=== PATIENT | female | born 1960 | race Caucasian/White ===

== ENCOUNTER 2023-06-11 18:22 | Emergency (ER) | payer MEDICAID, SELFPAY ==
[2023-06-11 18:41] VITALS: BP 165/86; PULSE 88; RESP 14; TEMP 36.9; O2SAT 99; BMI 22.4
[2023-06-11] MEDS: LIDOCAINE 2% JELLY 20 ML UR (19:30)
--- NOTE | 2023-06-11 19:32 | ED_ITS ---
HPI - Abdominal Pain General Chief Complaint: Abdominal Pain Stated Complaint: ABDOMINAL PAIN, FEMALE ISSUES Time Seen by Provider: 06/11/23 19:14 Source: patient Mode of arrival: walk-in Limitations: no limitations History of Present Illness HPI narrative: The patient is coming to the ER with a suprapubic pain after she inserted a crystal cube that she got online to help tighten her vagina inserted 2 days ago and she has not been able to get out, she mentioned that she put it in after her boyfriend accused her of cheating on him The patient is complaining of pain no fever no chills no other concerns and she also mentions that she did not go to the bathroom today because of the pain Related Data Previous Rx's Medication Instructions Recorded meloxicam 15 mg tablet 15 mg PO DAILY PRN pain #10 tabs 06/11/23 metronidazole 500 mg tablet 500 mg PO Q8H 7 days #21 tabs 06/11/23 oxycodone-acetaminophen 5 mg-325 1 tab PO Q8H PRN pain 2 days #6 06/11/23 mg tablet (Percocet) tabs Allergies Allergy/AdvReac Type Severity Reaction Status Date / Time No Known Drug Allergies Allergy Verified 06/11/23 18:40 Review of Systems ROS Status of ROS 10 or more systems reviewed and unremarkable except as noted in history and below PFSH PFS Social History Smoking status: Never smoker Exam Narrative Exam Narrative: Nurses notes and vital signs reviewed and patient is not hypoxic. General: Well-appearing and in no apparent distress. Skin: Warm, dry, no pallor noted. No rash. Head: Normocephalic, atraumatic. Neck: Supple, non-tender. Eye: Pupils are equal, round and EOMI. No scleral icterus. Ears, Nose, Mouth, and Throat: TM are clear, no nasal mucosal hypertrophy. Oral mucosa is moist, no posterior oropharynx erythema, uvula is mid-line Cardiovascular: Regular Rate and Rhythm without murmur, gallop or rub. Respiratory: No accessory muscle use or respiratory distress. Lungs are clear to auscultation, no wheezing, rales or rhonchi Chest Wall: no tenderness Back: No midline thoracic or lumbar vertebral tenderness. No CVA tenderness Musculoskeletal: normal ROM, no calf or popliteal tenderness, no lower extremity edema/swelling GI: Abdomen is soft, non-distended. Normal bowel sounds. No masses appreciated. Tenderness noted upon palpation of suprapubic area and on vaginal examination after inserting the speculum and the patient have a very tight vaginal, the patient vaginal wall shows dryness and crusting like irritation. Almost 3 x 5 cm rectangular in shape Crystal is seen Neurological: A&O x4. No cranial nerve dysfunction observed. No truncal ataxia. Moves all extremities. Sensation intact. Psychiatric: Cooperative and interactive. Normal mood and affect. Constitutional Vital Signs, click to edit/add: Last Vital Signs Temp 98.4 F 06/11/23 18:41 Pulse 88 06/11/23 18:41 Resp 14 06/11/23 18:41 BP 165/86 H 06/11/23 18:41 Pulse Ox 99 06/11/23 18:41 O2 Del Method Room Air 06/11/23 18:41 Course Vital Signs Vital signs: Vital Signs Temperature 98.4 F 06/11/23 18:41 Pulse Rate 88 06/11/23 18:41 Respiratory Rate 14 06/11/23 18:41 Blood Pressure 165/86 H 06/11/23 18:41 Pulse Oximetry 99 06/11/23 18:41 Oxygen Delivery Method Room Air 06/11/23 18:41 Temperature 98.4 F 06/11/23 18:41 Pulse Rate 88 06/11/23 18:41 Respiratory Rate 14 06/11/23 18:41 Blood Pressure 165/86 H 06/11/23 18:41 Pulse Oximetry 99 06/11/23 18:41 Oxygen Delivery Method Room Air 06/11/23 18:41 MDM - Abdominal Pain MDM Narrative Medical decision making narrative: Initially used Uro-Jet to help control the pain addition to Toradol the patient also provided with Dilaudid Multiple attempts to remove the foreign body was not successful I did consult Dr. Romero and [facility] service and she present to the bedside where she applied multiple attempts and eventually successfully removing the foreign body CBC showed some leukocytosis and that why the patient was provided with Flagyl and Mobic and Percocet for pain control The patient was referred to [facility] as outpatient Blood work-up also showed some hypokalemia the patient was started on p.o. potassium instructed to increase her p.o. intake of potassium The patient is to follow up with primary care physician in next 2-3 days or to return to the emergency department should any of the signs or symptoms worsen or new symptoms develop. The patient agrees with the following Diagnosis and Treatment plan and the patient will be discharged home. Lab Data Labs: Lab Results 06/11/23 Range/Units 21:20 WBC 14.4 H (4.0-11.0) 10^3/uL RBC 4.03 L (4.20-5.40) 10^6/uL Hgb 12.0 (12.0-16.0) g/dL Hct 35.6 L (36.0-48.0) % MCV 88.3 (81.0-99.0) fL MCH 29.8 (26.7-34.0) pg MCHC 33.7 (29.9-35.2) g/dL RDW 13.5 (11.0-15.0) % Plt Count 336 (150-450) 10^3/uL MPV 11.2 (9.5-13.5) fL Neut % (Auto) 78.1 H (43.0-75.0) % Lymph % (Auto) 15.7 L (20.5-60.0) % Glasscock % (Auto) 5.1 (1.7-12.0) % Eos % (Auto) 0.6 L (0.9-7.0) % Baso % (Auto) 0.2 (0.2-2.0) % Neut # (Auto) 11.3 H (1.4-6.5) 10^3/uL Lymph # (Auto) 2.3 (1.2-3.8) 10^3/uL Glasscock # (Auto) 0.7 (0.3-0.8) 10^3/uL Eos # (Auto) 0.1 (0.0-0.7) 10^3/uL Baso # (Auto) 0.0 (0.0-0.1) 10^3/uL Abs Immat Gran (auto) 0.05 H (0.00-0.03) 10^3/uL Imm/Tot Granulo (auto) 0.3 (0.0-0.5) % Sodium 140 (136-145) mmol/L Potassium 2.9 L* (3.5-5.1) mmol/L Chloride 105 (98-107) mmol/L Carbon Dioxide 27.6 (21.0-32.0) mmol/L Anion Gap 10.3 BUN 14.0 (7.0-18.0) mg/dL Creatinine 0.87 (0.55-1.02) mg/dL Est GFR ( Amer) >60 (>=60) Est GFR (Non-Af Amer) >60 (>=60) BUN/Creatinine Ratio 16.1 Glucose 108 H (74-106) mg/dL Calcium 8.9 (8.5-10.1) mg/dL Total Bilirubin 0.3 (0.2-1.0) mg/dL AST 17 (15-37) U/L ALT 20 (14-59) U/L Alkaline Phosphatase 77 (46-116) U/L Total Protein 7.1 (6.4-8.2) g/dL Albumin 3.4 (3.4-5.0) g/dL Globulin 3.7 g/dL Albumin/Globulin Ratio 0.9 Discharge Plan Discharge Chief Complaint: Abdominal Pain Clinical Impression: Vaginal foreign object, Acute hypokalemia Patient Disposition: Home, Self-Care Time of Disposition Decision: 23:24 Condition: Good Prescriptions / Home Meds: New metronidazole 500 mg tablet 500 mg PO Q8H 7 Days Qty: 21 0RF meloxicam 15 mg tablet 15 mg PO DAILY PRN (Reason: pain ) Qty: 10 0RF oxycodone-acetaminophen [Percocet] 5-325 mg tablet 1 tab PO Q8H PRN (Reason: pain) 2 Days Qty: 6 0RF Rx Instructions: Dx ICD 10 T19.2XXA Instructions: Hypokalemia (ED), Abdominal Pain (ED) Additional Instructions: [facility] [phone] CALL TO SCHEDULE FOLLOW UP FOR YEARLY EXAM. RETURN TO ER IF ANY VAGINAL BLEEDING, REDNESS OR IF STOOL IS COMING OUT OF VAGINA Stand Alone Forms: Portal Instructions Referrals: Don Duron DO [Physician] - 1 week Physician,Non-Staff, MD [Primary Care Provider] - 1 week Discharge Date/Time: 06/12/23 00:00
--- NOTE | 2023-06-11 20:19 | PC.NURSE ---
assisted Dr. Powell in attempt to remove crystal from patient. Vagina appears white, like the skin has been burned. patient was given 20 ml urojet. patient was restless and cried out in pain. after multiple attempts at removal physician stopped to call criminal court judge, patient was cleaned up, bed lowered and given warm blanket. patient playing on phone.
--- NOTE | 2023-06-11 21:59 | P.GYNCN_ITS ---
SUPERVISOR TITLE - CN: HPI Data of Consult Consult date: 06/11/23 Requesting Physician: ED attending Dr. Powell Family Provider: no primary care physician Consult Narrative Reason for consult: pelvic pain and other (patient placed large crystal cube in vagina because her partner said she was too loose referencing labia. Once in vagina it caused constant pain but she nor ER physician were able to remover because of urogenital atrophy) cc:: CC: crystal stuck in vagina and causing pain Review of Systems ROS Status of ROS 10 or more systems reviewed and unremarkable except as noted in history and below Constitutional Reports: fatigue Genitourinary Reports: difficulty voiding (likely because crystal causing pressure against posterior urethra ) PFSH PFSH Social History Smoking status: Never smoker Meds Home Medications and Allergies Home Medications Medication Instructions Recorded Confirmed Type No Known Home Medications 06/11/23 06/11/23 History Allergies Allergy/AdvReac Type Severity Reaction Status Date / Time No Known Drug Allergies Allergy Verified 06/11/23 18:40 Exam Constitutional Vital Signs, click to edit/add: Last Vital Signs Temp 98.4 F 06/11/23 18:41 Pulse 88 06/11/23 18:41 Resp 14 06/11/23 18:41 BP 165/86 H 06/11/23 18:41 Pulse Ox 99 06/11/23 18:41 O2 Del Method Room Air 06/11/23 18:41 Common normals: oriented x3 and alert General appearance: cooperative, in distress, frail appearing and appears older than stated age Nutritional appearance: thin Orientation/consciousness: Yes awake, Yes oriented to person, Yes oriented to place and Yes oriented to time HENMT Common normals: normocephalic and head/scalp atraumatic Eye Common normals: PERRL Pupil: accommodation reflex normal Respiratory Common normals: normal respiratory effort Auscultation: clear to auscultation bilaterally Cardio Common normals: regular rate and regular rhythm Common normals: no CVA tenderness and external appearance normal External Female Exam: normal appearance of the urethra, abnormal introitus and other (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 ) Speculum exam - vagina: vagina atrophic, foreign body in vagina and other (had too sedate with dilaudid and toradol in order to place harrison speculu) Speculum exam - cervix: other (s/p removal of uterus and both ovaries per patient) Extremity Common normals: normal to inspection and full ROM Neuro Common normals: oriented x3 and CN's II-XII intact bilaterally Sensorium/orientation: awake, alert and oriented to person Motor exam: strength 5/5 throughout Psych Common normals: mental status grossly normal, thought process normal and cooperative Appearance: grossly normal Attitude: calm Activity/motor behavior: appropriate eye contact Speech: normal speech Assessment and Plan Assessment and Plan (1) Vaginal foreign object: (2) Vaginal pain: Plan EXPLAIN TO PATIENT IMPORTANCE OF REMOVING FOREIGN OBJECT (CRYSTAL) FROM VAGINA. SHE PLACED BECAUSE READ ON INTERNET WOULD IMPROVE SEXUAL INTERCOURSE. PATIENT NEEDED TO BE SEDATED WITH ONE MG OF DILAUDID AND 30 MG OF TORADOL IN ORDER TO PLACE HARRISON SPECULUM DUE TO UROGENITAL ATROPHY. RING FORCEP USED TO REMOVE CRYSTAL CUBE WHICH WAS APPROXIMATELY 3 X 3 INCHES. THE VAGINA WAS IRRIGATED WITH NORMAL SALINE. THERE WAS NO ACTIVE BLEEDING. THERE WAS NO VISIBLE PERFORATION OF VAGINAL CUFF OR SIDE BARGER. PATIENT WAS GIVEN THE OFFICE NUMBER OF OUR NURSE PRACTITIONER/SERVICE OR WORK DISPATCHER FOR FOLLOW UP SHE SEES NO DOCTORS. SHE WILL BE INSTRUCTED TO MAKE AN APPOINTMENT FOR PROBLEM OR CONCERN AND FOR AN ANNUAL EXAM. SHE DOES NOT NEED ANTIBIOTIC. ALL QUESTIONS ANSWERED WITH STATED UNDERSTANDING.
[2023-06-11] MEDS: ONDANSETRON PF 4 MG/2 ML VIAL (22:00)
[2023-06-11] MEDS: HYDROMORPHONE HCL 0.5 MG/0.5 ML SYRINGE IV (22:00)
[2023-06-11] MEDS: HYDROMORPHONE HCL 0.5 MG/0.5 ML SYRINGE (22:01)
[2023-06-11] MEDS: KETOROLAC TROMETHAMINE 30 MG/ML VIAL 15 MG IVP (22:01)
[2023-06-11 22:34] LABS: Basophils Percent Auto 0.2 % (0.2-2.0); Eosinophils Absolute Auto 0.1 10^3/uL (0.0-0.7); Eosinophils Percent Auto 0.6 % (0.9-7.0); Hematocrit 35.6 % (36.0-48.0); Immature Granulocytes Abs Auto 0.05 10^3/uL (0.00-0.03); Immature Granulocytes Pct Auto 0.3 % (0.0-0.5); Lymphocytes Absolute Auto 2.3 10^3/uL (1.2-3.8); Lymphocytes Percent Auto 15.7 % (20.5-60.0); Mean Corpuscular HGB Conc 33.7 g/dL (29.9-35.2); Mean Corpuscular Hemoglobin 29.8 pg (26.7-34.0); Mean Corpuscular Volume 88.3 fL (81.0-99.0); Mean Platelet Volume 11.2 fL (9.5-13.5); Monocytes Absolute Auto 0.7 10^3/uL (0.3-0.8); Monocytes Percent Auto 5.1 % (1.7-12.0); Neutrophils Absolute Auto 11.3 10^3/uL (1.4-6.5); Neutrophils Percent Auto 78.1 % (43.0-75.0); Platelet Count 336 10^3/uL (150-450); Red Blood Count 4.03 10^6/uL (4.20-5.40); Red Cell Distribution Width 13.5 % (11.0-15.0); White Blood Count 14.4 10^3/uL (4.0-11.0)
[2023-06-11 22:52] LABS: Alanine Aminotransferase 20 U/L (14-59); Albumin Globulin Ratio 0.9; Albumin Level 3.4 g/dL (3.4-5.0); Alkaline Phosphatase 77 U/L (46-116); Anion Gap 10.3; Aspartate Amino Transferase 17 U/L (15-37); BUN Creatinine Ratio 16.1; Bilirubin Total 0.3 mg/dL (0.2-1.0); Calcium 8.9 mg/dL (8.5-10.1); Carbon Dioxide 27.6 mmol/L (21.0-32.0); Chloride 105 mmol/L (98-107); Estimated GFR (African America >60 (>=60); Estimated GFR (Non-African Ame >60 (>=60); Globulin 3.7 g/dL; Glucose 108 mg/dL (74-106); Sodium 140 mmol/L (136-145); Total Protein 7.1 g/dL (6.4-8.2)
[2023-06-11 22:59] LABS: Potassium 2.9 mmol/L (3.5-5.1)
--- NOTE | 2023-06-11 22:59 | PC.NURSE ---
THIS RN IN PATIENT ROOM ALONG WITH DR CONLEY TO ASSIST DR MURILLO. PATIENT MEDICATED WITH TWO DOSES OF 0.5MG DILAUDID. DR MURILLO ATTEMPTING TO REMOVE FOREIGN BODY FROM PATIENT VAGINA. DR CONLEY AND MYSELF WERE ASSISTING BY HOLDING PATIENT'S LEGS, FOLLOWING DR MURILLO'S INSTRUCTIONS, TRYING TO KEEP THE PATIENT FROM MOVING AWAY FROM THE EXAM. DR MURILLO WAS EVENTUALLY ABLE TO GET THE FOREIGN BODY OUT, VAGINA FLUSHED WITH SALINE. PATIENT REPORTS FEELING BETTER IMMEDIATELY AFTER PROCEDURE.
[2023-06-11] MEDS: POTASSIUM CHLORIDE 10 MEQ ER TABLET 40 MEQ PO (23:09)
== END 2023-06-12 | disposition home or self-care (01) ==
PROVIDERS: Emergency Provider Emergency Medicine
DX: T19.2XXA Foreign body in vulva and vagina, initial encounter (principal); E87.6 Hypokalemia
CPT/HCPCS: 36415; 80053; 85025; 96374; 96375; 99285; J1170